=== PATIENT | female | born 1955 | race Caucasian/White ===

== ENCOUNTER 2022-09-15 12:28 | Day surgery (SDC) | payer MEDICARE ==
[~2022-09-15] VITALS: Ht 175.3 cm; Wt 62.7 kg
[2022-09-15 11:35] VITALS: BP 146/73
[2022-09-15] MEDS ORDERED: FENTANYL CITRATE/PF 50 MCG/1 ML VIAL ONE (12:54)
[2022-09-15] MEDS ORDERED: MIDAZolam 1 MG/ML 5ML VIAL ONE (12:54)
[2022-09-15] MEDS ORDERED: CITA20TA27 PO (13:00)
[2022-09-15] MEDS ORDERED: CHOL200012 PO (13:01)
[2022-09-15] MEDS ORDERED: TURM500C4 PO (13:02)
[2022-09-15] MEDS ORDERED: citracal (13:03)
[2022-09-15] MEDS ORDERED: PLAN450C PO (13:06)
[2022-09-15 13:40] VITALS: BP 116/67
[2022-09-15 13:50] VITALS: BP 125/67
[2022-09-15 14:00] VITALS: BP 117/64
[2022-09-15 14:10] VITALS: BP 103/64
== END 2022-09-15 14:20 | disposition home or self-care (01) ==
LOC: GI LAB 12:28
PROVIDERS: ATTEND Internal Medicine Gastroenterology
DX: Z09 Encounter for follow-up examination after completed treatment for conditions other than malignant neoplasm (principal); K62.89 Other specified diseases of anus and rectum; Z86.010 Personal history of colon polyps
CPT/HCPCS: G0105; G0500; J2250; J3010; J7030; Z7512; 45378; 99152; A4620